=== PATIENT | female | born 1970 | race Caucasian/White ===

== ENCOUNTER 2024-04-27 08:03 | Outpatient (CLI) | payer BC, SELFPAY ==
--- NOTE | 2024-04-27 08:15 | MR_ITS ---
[address] [address] Phone:?[phone] Fax:?[phone] Referring Physician Information: Steffanie Mcclendon [address] [facility] [address] Phone:?[phone] Fax:?[phone] Patient:?Liz Harper D.O.B:?1970 Sex:?Female Phone:?[phone] [facility] MRN:?[id number] Exam Date:?04/27/2024 EXAM: MRI of the LEFT SHOULDER, without contrast CLINICAL INFORMATION: Female, 53 years old, with left upper arm/shoulder pain. INDICATION: Evaluate for rotator cuff tear. PRIOR SURGERY: None reported. PLAIN FILMS: None available. COMPARISONS: No prior MRIs available. TECHNICAL INFORMATION: Using a 1.5T MR scanner and a localizing surface coil: coronal obliques: PD, T2, STIR sagittal obliques: PD, T2 axials: PD, T2 SEDATION: None CONTRAST: None FINDINGS: Bones: Proximal humerus: No fracture or marrow edema/pathology. No humeral Hill-Sachs or reverse Hill-Sachs lesion/impaction or contusion. Glenoid: No fracture or marrow edema/pathology. No osseous Bankart lesion. Rotator cuff and muscles/tendons: Supraspinatus: Moderate supraspinatus tendinopathy with a 1.4 x 1.3 cm area of intermediate grade partial-thickness articular surface tearing involving approximately two thirds of the tendon thickness (coronal T2 series 7 image 12 and sagittal T2 series 9 image 7). No full-thickness tear or muscle atrophy. Infraspinatus: No tendinopathy, tear or atrophy. Teres minor: No tendinopathy, tear or atrophy. Subscapularis: Mild tendinopathy of the superior distal subscapularis, without tendon tear or muscle atrophy. Deltoid: No strain or atrophy. Coracoacromial arch: Acromion morphology: The acromion has type II morphology. No discrete subacromial osseous spur or os acromiale. Acromiohumeral space: The acromiohumeral space measures 5.7 mm at its narrowest point (osseous distance). Coracohumeral space: The coracohumeral space is within normal limits. Acromioclavicular joint: Joint: Mild-moderate AC joint arthropathy, which effaces the underlying supraspinatus (coronal PD series 6 image 11). Ligaments: Coracoclavicular ligaments are intact. Bursae: Subacromial-subdeltoid: Mild-moderate subacromial-subdeltoid bursitis. Subcoracoid: No convincing subcoracoid bursal thickening/bursitis. Biceps tendon: The long head of the biceps tendon is present within the bicipital groove. Mild tendinopathy of the intra-articular biceps long head tendon, without split/tear (sagittal PD series 8 images 8-12). Glenohumeral joint: Effusion/cyst: Mild-moderate glenohumeral joint effusion. Articular cartilage: Humeral head: No osteochondral abnormalities. Glenoid: No osteochondral abnormalities. Loose bodies: No discrete intra-articular body within the joint. Labrum:?Blunting, irregularity, and partial tearing of the superior labrum (coronal PD series 6 images 11-15). No paralabral cyst. Inferior glenohumeral ligament/axillary pouch:?Mild thickening of inferior capsuloligamentous structures (coronal PD series 6 images 8-13). Additionally, there is soft tissue thickening throughout the rotator interval (sagittal PD series 13 images 7-13). IMPRESSION: 1. Moderate supraspinatus tendinopathy with a 1.4 x 1.3 cm area of intermediate grade partial-thickness articular surface tearing. 2. Mild subscapularis tendinopathy without tear. 3. Mild narrowing of the acromiohumeral space with mild-moderate subacromial- subdeltoid bursitis. Additionally, there is mild/moderate AC joint arthropathy, which effaces the underlying supraspinatus. 4. Mild tendinopathy and fraying of the intra-articular biceps long head tendon without split/tear. 5. Findings in keeping with any clinical symptoms of adhesive capsulitis. 6. Blunting, irregularity, and partial tearing of the superior labrum, which is of doubtful clinical significance. 7. Mild-moderate glenohumeral joint effusion. No full-thickness chondral defect or evidence of glenohumeral joint osteoarthritis. BC Electronically signed on 04/27/2024 10:11:00 AM by Rahul Mclain M.D.
== END 2024-04-27 08:04 | disposition home or self-care (01) ==
PROVIDERS: Visit Provider Physician Assistant
DX: M25.512 Pain in left shoulder (principal); M75.102 Unspecified rotator cuff tear or rupture of left shoulder, not specified as traumatic; M75.52 Bursitis of left shoulder; M75.02 Adhesive capsulitis of left shoulder; S43.432A Superior glenoid labrum lesion of left shoulder, initial encounter; M25.412 Effusion, left shoulder; S49.92XA Unspecified injury of left shoulder and upper arm, initial encounter
CPT/HCPCS: 73221

== ENCOUNTER 2024-06-07 06:53 | Day surgery (SDC) | payer BC, SELFPAY ==
[2024-06-07] VITALS (16 sets, daily range): BP systolic 115–157; BP diastolic 73–110; PULSE 67–92; RESP 10–16; TEMP 36.6; O2SAT 89–100; BMI 30.6
--- OUTSIDE RECORDS SUMMARY | 2024-06-07 06:56 | XMS_ITS | Clinical Summary ---
Author Organization [facility] Address [address] [place] [address] Care Team Providers Care Manhole Stripper Name Role Phone Lilli Sheridan MD Primary Care Provider [phone] Allergies Active Allergy Reactions Criticality Noted Date Comments Codeine Nausea And Vomiting 01/06/2013 Medications albuterol HFA (Ventolin HFA) 90 mcg/actuation inhalerIndicatio ns:Cough, unspecified type Inhale 2 Puffs by mouth 4 times daily if needed for Shortness of Breath 1st choice. 1 Each 2 3 Active cholecalciferol (Vitamin D) 1,000 unit capsuleIndicatio ns:Vitamin D deficiency Take 1 Capsule (1,000 units) by mouth once daily. 0 3 Active Active Problems Problem Noted Date Diagnosed Date Microcytosis 03/25/2013 Family history of polyps in the colon 01/03/2013 Myopia 07/07/2012 Vitamin D deficiency 03/15/2012 Resolved Problems Problem Noted Date Diagnosed Date Resolved Date Hypertrophy of breast 05/10/20132014 Childhood asthma 03/15/2013 Overview (03/10/2012): no hospitalizations, hasn't needed inhaler for > 10 years. Allergic to cats. Encounters Date Type Department Care Team Description 06/01/2024 7:30 AM REAL ESTATE INSTRUCTOR Office Visit [facility] [address] [facility] [place] [phone] Lilli Sheridan MD Pre-Op Exam (DOS 06/07/2024; Left rotator cuff repair) 05/31/2024 Travel from Last 3 Months Immunizations Name Administration Dates Next Due COVID-19 vaccine (Moderna 100mcg/0.5mL) STEPHANY GHOSH 03/23/2021,08/17/2020 Influenza, IIV3 (Age >=3 years) 03/15/2008,03/01 Influenza, IIV4 12/19/2022,,02/08/2021,2018,12/22/2017,02/19/2016 Pneumococcal Poly,23-Valent (Pneumovax) 03/15/2008 Tdap 12/22/2017,01/26/2008,01/20/2008 Zoster (Shingrix-RZV, recombinant) 03/18/2023 Family History Medical History Relation Name Comments GI Disease Brother precancerous co timoteo polyp Asthma Father Kelvin Ovalles Diverticulitis Father Kelvin Ovalles Heart Disease Father Kelvin Ovalles EF 30%, PVCs Hypertension Father Kelvin Ovalles Stroke Father Kelvin Ovalles Arthritis Mother Ryanne Ovalles Lung cancer Mother Ryanne Ovalles 2 months a fter dx '20 Cancer-breast Other maternal great aunts, onset age 70-80s, x2 Relation Name Status Comments Brother Father Kelvin Ovalles Alive Mother Ryanne Ovalles Other Social History Tobacco Use Types Packs/Day Years Used Date Smoking Tobacco: Never Smokeless Tobacco: Never Alcohol Use Standard Drinks/Week Comments Yes 0 (1 standard drink = 0.6 oz pur e alcohol) occasional PHQ-2 Answer Date Recorded PHQ-2 TOTAL SCORE 1 03/18/2023 Social Connections Answer Date Recorded Do you often feel lonely or isolated from those around you? 0 05/31/2024 Financial Resource Strain Answer Date R ecorded Difficulty of Paying Living Expenses 3 05/31/2024 Difficulty of Paying Living Expenses Not on file 05/31/2024 Food Insecurity Answer Date Recorded Do you worry your food will run out before you are able to buy more? 1 05/31/2024 Transportation Needs Answer Date Record ed Does lack of transportation keep you from medica l appointments? 1 05/31/2024 Does lack of transportation keep you from work, meetings or getting things that you need? 1 05/31/2024 Housing Stability Answer Date Recorded What is your housing situation today? 1 05/31/2024 Utilities Answer Date Recorded Do you have trouble paying f or utilities (for example, heat, electricity, water, phone)? 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 file Not on file Not on fi le Travel History Travel Start Travel End [facility] 05/21/2024 025 [facility] 04/30/2024 05/07/2024 Obstetrics History Last Filed Vital Signs Vital Sign Reading Time Taken Comments Blood Pressure 122/84 06/01/2024 7:40 AM REAL ESTATE INSTRUCTOR Pulse 85 06/01/2024 7:40 AM REAL ESTATE INSTRUCTOR Temperature 36.7 C (98.1 F) 03/03/2023 8:36 AM REAL ESTATE INSTRUCTOR Respiratory Rate 16 03/03/2023 10:30 AM REAL ESTATE INSTRUCTOR Oxygen Saturation 99% 06/01/2024 7:40 AM REAL ESTATE INSTRUCTOR Inhaled Oxygen Concentration - - Weight 88.6 kg (195 lb 6.4 oz) 06/01/2024 7:40 A M REAL ESTATE INSTRUCTOR Height 168.3 cm (5' 6.25) 03/18/2023 9:24 AM CS T Body Mass Index 31.3 03/18/2023 9:24 AM REAL ESTATE INSTRUCTOR Plan of Treatment Health Maintenance Due Date Last Done Comments Pneumococcal series for age 50+ (2 of 2 - PCV) 2022 03/15/2008 Zoster (shingles) series for age 50+ (2 of 2) 05/13/2023 03/18/2023 COVID-19 vaccine series ( season) 2023 03/23/2021, 09/14/2020, 08/17/2020 Influenza for age 50-64 12/13/2023 12/20/19 23, 03/12/2022, 02/08/2021, Additional history exists BMI (ht and wt on same day) for age 18+ 03/18/2024 03/18/2023, 03/12/2022, 09/14/2020, Additional history exists Depression screening for age 12+ 03/18/2024 03/18/2023, 03/12/2022, 09/14/2020, Additional history exists Mammogram for age 45-75 05/19/2024 05/19/19 24, 04/16/2022, 04/11/2022, Additional history exists Pap test for age 21-65 09/14/2025 , 09/14/2020, 12/22/2017, Additional history exists Tetanus booster 12/23/2027 12/22/2017, 01/11, 01/20/2008 Colonoscopy through age 75 03/03/202803/03, 01/07/2018, 01/06/2013, Additional history exists Lipids for age 45-75 03/18/2028 03/18/2023, 03/12/2022, 09/14/2020, Additional history exists HIV for age 15-65 04/13/2049 Postponed from 07/12/1987 (Patient discretion) Tdap Completed 12/22/2017, 01/11, 01/20/2008 Hepatitis C screening for age 18-79 Completed 03/12/2022 Procedures Procedure Name Priority Date/Time Associated Diagnosis Comments CBC W PLT NO DIFF Routine 06/01/2024 8:0 4 AM REAL ESTATE INSTRUCTOR Pre-op exam BASIC METABOLIC PANEL Routine 06/01/2024 8:04 AM REAL ESTATE INSTRUCTOR Pre-op exam XR MAMMO NICHOLAS BILAT SCREEN Routine 05/19/2023 8:02 AM REAL ESTATE INSTRUCTOR Breast cancer screening by mammogram LIPID PANEL W REFLEX MEASURED LDL Routine 03/18/2023 10:19 AM REAL ESTATE INSTRUCTOR Screening for condition COLONOSCOPY 03/03/2023 9:02 AM REAL ESTATE INSTRUCTOR ANTI HCV Routine 03/12/2022 8:45 AM REAL ESTATE INSTRUCTOR Need for hepatitis C screening test AMORTIZATION SCHEDULE CLERK THIN PREP PAP SCREEN IMAGED Routine 09/14/2020 10:00 AM CDT Cervical cancer screening from Last 3 Months or Most Recently Relevant to Health Maintenance Results * (ABNORMAL) CBC W PLT NO DIFF (06/01/2024 8:04 AM REAL ESTATE INSTRUCTOR) WHITE BLOOD CELL COUNT 6.7 3.8 - 10.8 Thousand/u L [facility] RED BLOOD CELL COUNT 5.63(H) 3.80 - 5.10 Million/uL [facility] HEMOGLOBIN 13.1 11.7 - 15.5 g/dL [facility] HEMATOCRIT 42.2 35.0 - 45.0 % [facility] MCV 75.0(L) 80.0 - 100.0 fL [facility] MCH 23.3(L) 27.0 - 33.0 pg [facility] MCHC 31.0(L) 32.0 - 36.0 g/dL [facility] Comment: For adults, a slight decrease in the calculated MCHC value (in the range of 30 to 32 g/dL) is most likely not clinically significant; however, it should be interpreted with caution in correlation with other red cell parameters and the patient's clinical condition. RDW 16.1(H) 11.0 - 15.0 % [facility] PLATELET COUNT 323 140 - 400 Thousand/u L [facility] MPV 10.6 7.5 - 12.5 fL [facility] Blood BLOOD SPECIMEN / Unknown 06/01/2024 8:04 AM REAL ESTATE INSTRUCTOR 06/01/2024 8:06 AM REAL ESTATE INSTRUCTOR Narrative [facility] - 06/02/2024 2:35 AM REAL ESTATE INSTRUCTOR FASTING:NO FASTING: NO us Lilli Sheridan MD HEMATOLOGY Final Resu lt [facility] [address] [place] [address], [facility] [address] [place] [address] * (ABNORMAL) BASIC METABOLIC PANEL (06/01/2024 8:04 AM REAL ESTATE INSTRUCTOR) GLUCOSE 94 65 - 139 mg/dL [facility] Comment: Non-fasting reference interval UREA NITROGEN (BUN) 18 7 - 25 mg/dL [facility] CREATININE 0.79 0.50 - 1.03 mg/dL [facility] EGFR 91 > OR = 60 mL/min/1. 73m2 [facility] BUN/CREATININE RATIO SEE NOTE: 6 - 22 (calc) [facility] Comment: Not Reported: BUN and Creatinine are within reference range. SODIUM 141 135 - 146 mmol/L [facility] POTASSIUM 4.5 3.5 - 5.3 mmol/L [facility] CHLORIDE 103 98 - 110 mmol/L [facility] CARBON DIOXIDE 30 20 - 32 mmol/L [facility] ELECTROLYTE BALANCE 8 7 - 17 mmol/L (calc) [facility] CALCIUM 10.5(H) 8.6 - 10.4 mg/dL [facility] Blood BLOOD SPECIMEN / Unknown 06/01/2024 8:04 AM REAL ESTATE INSTRUCTOR 06/01/2024 8:06 AM REAL ESTATE INSTRUCTOR Narrative [facility] - 06/02/2024 4:10 AM REAL ESTATE INSTRUCTOR FASTING:NO FASTING: NO Lilli Sheridan MD CHEMISTRY Final Resu lt [facility] [address] [place] [address], [facility] [address] [place] [address] * XR MAMMO NICHOLAS BILAT SCREEN [[id number]] (05/19/2023 8:02 AM REAL ESTATE INSTRUCTOR) Anatomical Region Laterality Modality BREASTS, Breast Left, Breast Right Bilateral Mammography Impressions 05/19/2023 9:00 AM REAL ESTATE INSTRUCTOR There is no radiographic evidence for malignancy. Recommend annual mammograms. MAMMOGRAM ASSESSMENT: ACR 2 Benign PATIENTS: You will also receive a letter with your examination results in an easy to read format. If you have questions about your results, please contact your referring provider. Narrative 05/19/2023 9:00 AM [facility] For Patients: As a result of the Cures Act, medical imaging exams and procedure reports are released immediately into your electronic medical record. You may view this report before your referring provider. If you have questions, please contact your health care provider. XR MAMMO NICHOLAS BILAT SCREEN [[id number]] CLINICAL HISTORY: This is an asymptomatic 52 y.o. patient. INDICATION FOR EXAM: Mammogram Screening. TECHNIQUE: CC & MLO views were obtained. This study was evaluated with the assistance of Computer-Aided Detection. Breast Tomosynthesis was used in interpretation. COMPARISON FILMS: Yes 04/11/22 [facility] FINDINGS: The breasts are almost entirely fatty. No suspicious masses or microcalcifications. There are post surgical changes of both breasts. us Michele Ojeda DO MAMMO Final Res ult * LIPID PANEL W REFLEX MEASURED LDL (03/18/2023 10:19 AM [facility]) CHOLESTEROL,TOTAL 171 100 - 199 mg/dL 03/18/2023 12:03 PM [facility] Comment: Cholesterol, Total Reference Ranges Desirable <200 mg/dL Borderline 200-239 mg/dL High >=240 mg/dL TRIGLYCERIDES 64 <150 mg/dL 03/18/2023 12:03 PM [facility] HDL CHOLESTEROL 54 >40 mg/dL 12:03 PM [facility] NON-HDL CHOLESTEROL 117 <145 mg/dl 03/18/2023 12:03 PM [facility] CHOL/HDL RATIO 3.17 <4.50 03/18/2023 12:03 PM [facility] LDL CHOLESTEROL 104 <=130 mg/dL 03/18/2023 12:03 PM [facility] VLDL CHOLESTEROL 13 <=30 mg/dL 03/18/2023 12:03 PM [facility] PROVIDER ORDERED STATUS RANDOM 03/18/2023 12:03 PM [facility] Blood BLOOD SPECIMEN / Unknown Venipuncture / Unknown 03/18/2023 10:19 AM REAL ESTATE INSTRUCTOR 03/18/2023 10:19 AM REAL ESTATE INSTRUCTOR Michele Ojeda DO CHEMISTRY Final Res ult [facility] [address] [place] [address] * COLONOSCOPY (03/03/2023 9:02 AM REAL ESTATE INSTRUCTOR) 03/03/2023 9:02 AM REAL ESTATE INSTRUCTOR Narrative Transcriptions Loida Garcia DO - 03/03/2023 6:21 PM CST Patient Name: Liz Harper Procedure Date: 03/03/2023 Gender: Female Date of : 1970 Admit Type: Ambulatory Procedure: Colonoscopy Proceduralist: Loida Garcia MD Referring MD: Michele Ojeda DO Indications/Pre-Op Diagnosis: Colon cancer screening in patient atincreased risk: Family history of 1st-degree relative with colon polyps before age 60 years Medications: Propofol per Anesthesia, MonitoredAnesthesia Care Procedure Description: The patient had risks, benefits and alternatives explained to andgave informed consent. The patient had a stable cardiopulmonary status and judged an adequate candidate for conscious sedation. The colonoscopy was performed without difficulty. The patienttolerated the procedure well. The quality of the bowel preparation was good.The ileocecal valve, appendiceal orifice, and rectum were photographed. Complications: No immediate complications. Estimated Blood Loss & Specimen: Estimated blood loss: none. Specimen collected - Yes and sent to Laboratory Findings: The perianal and digital rectal examinations were normal. Pertinent negatives include normal sphincter tone, no palpable rectal lesions,no anal lesion or abnormality and normal stool Hemoccult. Many large-mouthed diverticula were found in the sigmoid colon. Non-bleeding internal hemorrhoids were found during retroflexion. The hemorrhoids were mild and Grade I (internal hemorrhoids that do not prolapse). The entire examined colon appeared normal on direct and retroflexion views. Impressions/Post-Op Diagnosis: - Diverticulosis in the sigmoid colon. - Non-bleeding internal hemorrhoids. - The entire examined colon is normal on direct and retroflexionviews. - No specimens collected. Recommendation: - Patient has a contact number available for emergencies. The signsand symptoms of potential delayed complications were discussed with the patient. Return to normal activities tomorrow. Written discharge instructions were provided to the patient. - Discharge patient to home (ambulatory). - Resume previous diet. - Continue present medications. - Repeat colonoscopy in 5 years for screening purposes. Loida Garcia MD 03/03/2023 6:21:39 PM This report has been signed electronically. Note Initiated On: 03/03/2023 9:02 AM us Loida Garcia DO PROCEDURE ORD Final Res ult * ANTI HCV (03/12/2022 8:45 AM REAL ESTATE INSTRUCTOR) HEPATITIS C ANTIBODY Non-React rachid Non-React rachid 03/13/2022 6:08 PM REAL ESTATE INSTRUCTOR [facility] Comment:Antibodies to HCV no t detected; does not exclude the possibility of exposure to HCV. Blood BLOOD SPECIMEN / Unknown Venipuncture / Unknown 03/12/2022 8:45 AM REAL ESTATE INSTRUCTOR 03/12/2022 8:48 AM REAL ESTATE INSTRUCTOR us Michele Ojeda DO SEND OUTS Final Res ult [facility] [address] [place] [address], [place] * AMORTIZATION SCHEDULE CLERK THIN PREP PAP SCREEN IMAGED (09/14/2020 10:00 AM CDT) Case Report Gynecologic Cytology Report Case: [id number] Authorizing Provider: Michele Ojeda DO Collected: 09/14/2020 1000 Ordering Location: [facility] Received: 09/14/2020 1009 Clinic First Screen: Bryant Mike Specimen: AMORTIZATION SCHEDULE CLERK ThinPrep Vial Screening, Cervical 09/24/2020 7:15 AM CDT [facility] INTERPRETATION/ RESULT NEGATIVE FOR INTRAEPITHELIAL LESION OR MALIGNANCY (NIL) (none) 09/24/2020 7:15 AM CDT [facility] [employer] [facility] IMEN ADEQUACY Satisfactory for evaluation Endocervical component present 09/24/2020 7:15 AM CDT [facility] HPV REQUEST HPV and PAP 09/24/2020 7:15 AM CDT [facility] [employer] [facility] Date of LMP 08/11/2020 09/24/2020 7:15 AM CDT [facility] Last Pap Date 12/22/17 09/24/2020 7:15 AM CDT [facility] Last Pap Result NIL 7:15 AM CDT [facility] [employer] [facility] Abnormal Pap or [place] Bx in last 5 years No 09/24/2020 7:15 AM CDT [facility] [employer] ENTRAL LABORATORY Menstrual Status Irregular Periods 09/24/2020 7:15 AM CDT [facility] [employer] [facility] [place] Bx Done Today No 09/24/2020 7:15 AM CDT [facility] [employer] [facility] Additional Information None given 09/24/2020 7:15 AM CDT [facility] Comment: Cytology is screened at [facility] - [address], [place] [address] and [facility] - [address] [place] [address], [place] [address] and [facility] - [address] [place] [address] Interpreted at [facility] - [address] [place] [address] Automated Review Successful 09/24/2020 7:15 AM T [facility] Comment:Specimen processed s uccessfully by automated orchid grower device, ThinPrep Imaging System, [employer] ANCILLARY TESTING AMORTIZATION SCHEDULE CLERK HPV Ordered, Please see separate report 09/24/2020 7:15 AM T [facility] Note The pap test is a screening technique, not a diagnostic procedure. It is used primarily to screen for squamous cancers and precursor lesions. Published studies have shown that it is subject to both false negative and false positive results. The pap test should not be used as the sole means to diagnose or exclude pre-malignant and malignant lesions. 09/24/2020 7:15 AM T [facility] Other (Cervical) Non-Blood / Unknown 09/14/2020 10:00 AM CDT 09/14/2020 10:09 AM CDT us Michele Ojeda DO PATHOLOGY/CYTOLOGY Final Result [facility] [address] [place] [address], [place] from Last 3 Months or Most Recently Relevant to Health Maintenance Insurance [facility] [id number] [facility] Advance Directives * Full Code (Latest Code Status on File) Date Activated Date Inactivated Comments 03/03/2023 8:07 AM 03/03/2023 12:58 PM Question Answer Comments Code Status Discussion: Discussed * Full Code Date Activated Date Inactivated Comments 05/10/2013 12:37 PM 05/11/2013 1:05 PM Care Teams Manhole Stripper Relationship Specialty Start Date End Date Lilli Sheridan MD [address] [place] [address] [place] [address] PCP - General Family Practice 06/01/24
[2024-06-07] MEDS: LACTATED RINGERS 1000 ML 1,000 ML 100 ML IV (07:00)
[2024-06-07] MEDS: CELECOXIB 200 MG CAPSULE PO (07:05)
[2024-06-07] MEDS: OXYCODONE (CR) 10 MG TAB.ER.12H PO (07:05)
[2024-06-07] MEDS: ACETAMINOPHEN 500 MG TABLET 1000 MG PO (07:05)
[2024-06-07] MEDS: SODIUM CHLORIDE 0.9 % (FLUSH) 10 ML SYRINGE IVF (07:24)
[2024-06-07] MEDS: fentaNYL 100 MCG/2 ML inj IVP (08:08)
[2024-06-07] MEDS: MIDAZOLAM HCL 1 MG/ML inj IVP (08:08)
--- NOTE | 2024-06-07 08:15 | SUR.PREOP ---
TIME?OUT:?0808 PT/everett wilson RN/sabra willis MDA?VERIFICATION?OF?SURGICAL?SITE,?PROCEDURE,?AND?CONSENT OBTAINED?PRIOR?TO?INVASIVE?PROCEDURE.
--- NOTE | 2024-06-07 08:20 | P.NB_ITS ---
Nerve Block Nerve Block Time Seen by Provider: 08:10 Date Seen: 06/07/24 Type of block requested by surgeon for post-operative analgesia: interscalene and supraclavicular Side: left Time out performed: Yes Verification of patient name: Yes Verification of date of : Yes Site marking: site marked Name of person performing procedure: Willis Continuous monitoring Was continuous monitoring of O2 sat, B/P, erosion control specialist, recorded every 15 minutes?: Yes Procedure Checklist: sterile prep, needles and gloves Ultrasound guided. Images saved: Yes Medications given in 5ml increments after negative aspiration: Ropivicaine %: 0.5 mL: 20 Needle gauge: 22 Precedex (mcg): 25 Patient tolerated procedure well: Yes Block Charges Block Charge (with Pro Fee): Brachial Plexus Use of Ultrasound Machine for Block: Yes- US Guidance/pain block
--- NOTE | 2024-06-07 08:28 | W.ANESCHARGE ---
Anesthesia Charges Start Date/Time Anesthesia Start Date: 06/07/24 Anesthesia Start Time: 08:35 Stop Date/Time Anesthesia Stop Date: 06/07/24 Anesthesia Stop Time: 10:54 Coding CPT Codes CPT Codes: ANESTH SURGERY OF SHOULDER - 81639 ([id number]) P2 - PATIENT W/MILD SYST DISEASE, QK - SVP [employer]ES 2-4 CNCRNT ANES PROC, QX - LOGISTICS LOSS PREVENTION MANAGER SVC W/ MD MED DIRECTION
[2024-06-07] MEDS: CEFAZOLIN 2 GM INJ IVP (08:56)
[2024-06-07] MEDS: EPINEPHrine 1 MG in SODIUM CHLORIDE IRRIG SOLUTION 3,000 ML 3001 MG IRRIGATION ×3 (09:10→09:35)
--- NOTE | 2024-06-07 09:14 | SUR.OPER ---
PATIENT QUESTIONS ANSWERED SATISFACTORILY PREOPERATIVELY. PATIENT BROUGHT TO OR #3 PER CART FOLLOWING THE BLOCK. Patient positioned supine on OR #3 bed for the intubation.? Perioperative team wrapped the right arm in a neutral position on the pt. abdomen with the drawsheet. Left arm elevated on an IV pole in a padded strap. Final approval of positioning by surgeon. CONTINUOUS IRRIGATION OF THE LEFT SHOULDER WITH MIXTURE OF 3000 NACL AND 1mg OF EPINEPHRINE DURING PROCEDURE.
--- NOTE | 2024-06-07 10:31 | PM.ORPRC ---
Procedure Note Date of procedure: 06/07/24 Procedure: PREOPERATIVE DIAGNOSIS: Left shoulder rotator cuff tear, AC joint arthrosis, labral fraying POSTOPERATIVE DIAGNOSIS: Left shoulder rotator cuff tear, AC joint arthrosis, labral fraying NAME OF OPERATION: Left shoulder arthroscopic labral debridement, subacromial decompression, distal clavicle excision, mini open subscap and infraspinatus repair SURGEON: Terrell Badillo MD CUSTOMER COUNTER REPRESENTATIVE: Blanca Phillip PA-C ANESTHESIA: Supraclavicular block plus general endotracheal ESTIMATED BLOOD LOSS: 5 mL COMPLICATIONS: None SPECIMENS: None DRAINS: None PREOPERATIVE ANTIBIOTICS: Ancef 2 grams INDICATIONS: The patient is a 53-year-old with a history of left shoulder pain secondary to the above diagnoses. Despite appropriate non operative management, they continue to have symptoms. Operative intervention was recommended. The risks, benefits and expected outcomes were discussed in detail. These included but were not limited to: Infection, bleeding, injury to blood vessel or nerve, venous thromboembolism. All questions were answered to their satisfaction. PROCEDURE: A supraclavicular block was placed by Anesthesia. General anesthesia was administered. The patient was placed in the high beach chair position. The left shoulder was prepped and draped in the usual sterile fashion. The glenohumeral joint was infiltrated with 20 mL of normal saline with epinephrine. The posterior portal was established, the arthroscope was introduced. The anterior portal was established, Diagnostic arthroscopy was performed with findings as follows: The biceps and biceps anchor are intact. The anterior, posterior and superior labrum shows age-appropriate degenerative fraying. Articular surfaces on the humeral head and glenoid are normal. There are no loose bodies. There is a near full-thickness tear of the infraspinatus. The deep surface of the subscap is torn. The labrum was debrided with the shaver. The likewise, the undersurface of the infraspinatus and subscap were debrided with the shaver. The infraspinatus tear was marked percutaneously in the subacromial space with a spinal needle and # 1 PDS suture, pulled out the anterior portal. The arthroscope was placed in the subacromial space, the lateral portal was established. The Arthrex Damon was used to dissect the acromion free. The CA ligament was recessed off the anterior acromion, the AC joint was exposed. The acromioplasty was performed with the bur in the posterior portal. The bur was then placed in the lateral portal and the lateral and anterior aspect of the acromion were resected. The undersurface of the distal clavicle was resected through the lateral portal. Finally, the bur was placed in the anterior portal and the remainder of the distal clavicle was resected for a total of 10 mm. An accessory anterolateral portal was placed. The subacromial/subdeltoid bursa was aggressively debrided. There is a near full-thickness tear of the infraspinatus. Arthroscopic instruments were removed. The accessory anterolateral portal was extended proximally and distally, subcutaneous dissection was taken with electrocautery to the deltoid. The deltoid was divided in line with its fibers. The static retractor was placed. The subacromial/subdeltoid bursa was debrided with the Ramirez scissors. We located the sutures through the tear. The few remaining fibers of the infraspinatus were released with the 15 blade, creating a small full-thickness tear. The greater tuberosity was debrided to punctate bleeding bone using the arthroscopic bur. We sharply entered the rotator interval with the scalpel following it distally to the subscap insertion. We then released the upper border of the subscap from the lesser tuberosity creating a small full-thickness tear of the upper border. The lesser tuberosity was debrided to punctate bleeding bone using the arthroscopic bur. An inverted mattress suture tape was placed in the subscap. This was secured to the lesser tuberosity with a corkscrew anchor. We then repaired the rotator interval with a single # 2 FiberWire suture in a [id number] fashion, completing the subscap repair. Attention was returned to the infraspinatus repair. Two Arthrex all suture anchors were placed just off the articular surface. Both limbs of the FiberWire and fiber tape were passed using the scorpion. A fiber link was placed in the leading edge of the rotator cuff x2. We tied the 2 central FiberWire sutures over the rotator cuff. We then proceeded with a lateral row of SwiveLock anchors x 2 crossing the FiberTape and incorporating the FiberWire and fiber link into each lateral row anchor. This provides an anatomic, watertight repair of the rotator cuff. There is no tension on the repair with the shoulder at 0? abduction. The wound was irrigated with normal saline off the pump. The deltoid was repaired with an 0 Vicryl in an interrupted [id number] fashion. Subcutaneous tissues were closed with a 3-0 Vicryl. Skin was closed with a 3-0 Monocryl in a subcuticular fashion. A dry dressing and sling were applied. Sponge and needle counts were correct x2. The patient tolerated the procedure well. There were no apparent complications. They were carefully transferred to the hospital bed and taken to the postanesthesia care unit in satisfactory condition. PLAN: The patient will be discharged to home. No active range of motion of the shoulder will be allowed for 6 weeks postoperatively. They can work on active range of motion of the elbow, wrist and fingers. They will follow up in the office next week for a wound check and an AP and transscapular Y-view of the shoulder prior to being seen.
--- NOTE | 2024-06-07 11:02 | W.ANESCHARGE ---
Anesthesia Charges Start Date/Time Anesthesia Start Date: 06/07/24 Anesthesia Start Time: 08:35 Stop Date/Time Anesthesia Stop Date: 06/07/24 Anesthesia Stop Time: 10:54 Coding CPT Codes CPT Codes: ANESTH SURGERY OF SHOULDER - 73925 ([id number]) P2 - PATIENT W/MILD SYST DISEASE, QK - CR[employer]IN[employer]YER 2-4 CNCRNT ANES PROC, QX - MULTI DISCIPLINED LANGUAGE ANALYST SVC W/ MD MED DIRECTION
== END 2024-06-07 13:10 | disposition home or self-care (01) ==
PROVIDERS: PCP Family Medicine; Visit Provider Orthopaedic Surgery
PROC: (CPT 23412; principal; 2024-06-07 08:45)
DX: M75.102 Unspecified rotator cuff tear or rupture of left shoulder, not specified as traumatic (principal); M19.012 Primary osteoarthritis, left shoulder; S43.432A Superior glenoid labrum lesion of left shoulder, initial encounter; G89.18 Other acute postprocedural pain
CPT/HCPCS: 29822; 29826; 29824; 23412; 01630; 64415; 76942; A9270; C1713; J0171; J0330; J0690; J1100; J2250; J2371; J2405; J2704; J2710; J2795; J3010; J7120; L3670